=== PATIENT | female | born 2000 | race Caucasian/White ===

== ENCOUNTER 2024-10-02 12:01 | Day surgery (SDC) | payer SELFPAY ==
[2024-10-01 15:38] VITALS: BMI 40.7
[2024-10-02] MEDS ORDERED: Famotidine/PF 20 mg/2ml Vial ONE (13:17)
[2024-10-02] MEDS ORDERED: Iopamidol 0 ML ONE (13:33)
[2024-10-02] MEDS ORDERED: CEFAZOLIN 2 GM VIAL ONE (15:02)
[2024-10-02] MEDS ORDERED: fentaNYL PF 100 MCG/2 ML SYRINGE ONE (15:04)
[2024-10-02] MEDS ORDERED: Ondansetron PF 4 MG/2 ML Vial ONE (15:05)
[2024-10-02] MEDS ORDERED: PROPOFOL 20 ML ONE (15:05)
[2024-10-02] MEDS ORDERED: Lidocaine 1% PF 5 ML VIAL ONE (15:05)
[2024-10-02] MEDS ORDERED: Ketorolac Tromethamine 30 MG (1 mL) VIAL ONE (15:49)
[2024-10-02] MEDS ORDERED: HYDROmorphone 0.5 MG/0.5 ML SYRINGE ONE (15:55)
[2024-10-02] MEDS ORDERED: HYDROcodone/Acetaminophen 5/325 mg Tablet ONE (16:30)
== END 2024-10-02 17:15 | disposition home or self-care (01) ==
LOC: SDC 12:01
PROVIDERS: ATTEND Urology
PROC: 0T768DZ Dilation of Right Ureter with Intraluminal Device, Via Natural or Artificial Opening Endoscopic (ICD-10-PCS; principal; 2024-10-02)
PROC: 0TC68ZZ Extirpation of Matter from Right Ureter, Via Natural or Artificial Opening Endoscopic (ICD-10-PCS; principal; 2024-10-02)
DX: N20.1 Calculus of ureter (principal)
CPT/HCPCS: C1758; C2617; J1100; J1171; J1308; J1885; J2250; J2405; J2704; J3010; Q9967